=== PATIENT | male | born 1935 ===

== ENCOUNTER 2019-03-31 13:12 | Inpatient (IN) | payer MEDICARE ==
[2019-03-31 16:29] LABS: Hematocrit 23 % (42-52); Hemoglobin 7.7 g/dL (14.0-18.0); Mean Corpuscular HGB Conc 34 g/dL (31-36); Mean Corpuscular Hemoglobin 31 pg (27-31); Mean Corpuscular Volume 92 fL (80-94); Mean Platelet Volume 7.7 fL (7.4-10.4); Platelet Count 212 10^3/uL (150-450); Red Cell Distribution Width 16 % (10-15); White Blood Count 16.9 10^3/uL (3.5-10.8)
[2019-03-31] MEDS ORDERED: Pantoprazole IV* 40 MG IV ONE (16:41)
[2019-03-31 16:43] LABS: Albumin 2.6 g/dL (3.2-5.2); Albumin/Globulin Ratio 1.1 (1-3); BUN/Creatinine Ratio 59.3 (8-20); Calcium 8.4 mg/dL (8.6-10.3); EGFR African American 159.5 (>60); EGFR Non-African American 131.8 (>60); Globulin 2.4 g/dL (2-4); INR 1.15 (0.82-1.09); Potassium 3.6 mmol/L (3.5-5.0); Total Bilirubin 0.5 mg/dL (0.2-1.0)
[2019-03-31] MEDS ORDERED: PROCHLORPERAZINE INJ 5 MG/ML 2 ML VIAL IV PRN (16:44)
[2019-03-31] MEDS ORDERED: Acetaminophen SUPP* 650 MG SUPP PR PRN (16:45)
[2019-03-31] MEDS: NS 0.9% 1000 ML** 1,000 ML IV SCH (16:53)
[2019-03-31 17:06] LABS: ABS Basophils 0.1 10^3/ul (0-0.2); ABS Eosinophils 0.1 10^3/ul (0-0.6); ABS Monocytes 1.1 10^3/ul (0-0.8); ABS Neutrophils 14.6 10^3/ul (1.5-7.7); Eosinophil % 0.4 %; Lymphocyte % 5.8 %; Nucleated Red Blood Cells % 0.1
[2019-03-31 17:08] LABS: Polychromasia 1+
[2019-03-31] MEDS: Pantoprazole* 80 mg IN NS 80 MG/250 ML BAG IV SCH (18:05)
[2019-03-31 20:15] LABS: Hematocrit 23 % (42-52); Hemoglobin 7.5 g/dL (14.0-18.0)
--- NOTE | 2019-03-31 20:20 | HP ---
CC: LINCOLN Garnica; Dr. Ragsdale * HISTORY AND PHYSICAL: DATE OF ADMISSION: 03/31/19 TIME OF EVALUATION: 4:15 p.m. PRIMARY CARE PROVIDER: LINCOLN Garnica CONSULTING PROCUREMENT PROFESSIONAL: Dr. Ragsdale. CHIEF COMPLAINT: "My blood was low." HISTORY OF PRESENT ILLNESS: Mr. Gautam is an 83-year-old male with a past medical history of COPD, C. diff colitis, pneumonia, spinal stenosis, chronic back pain, who presented to [facility] on 03/28/19 with complaints of shortness of breath. He was found to have an H and H of 4.2/13.9 with a BUN of 121, creatinine of 1.3 and he was found to be guaiac positive. It was reported that he was taking large amounts of ibuprofen recently for his back pain. He was admitted to [facility] under the impression of GI bleed with anemia and he received PRBCs and PPI. He was also diagnosed with acute exacerbation of COPD and he was started on doxycycline. On admission, the patient was described as lethargic, pale. His hemoglobin improved after transfusion, but as it started to trend down again today, we were contacted and the patient was accepted in transfer. He denies any episodes of GI bleed in the past. He states that he has had back pain for many years and he would take 1 ibuprofen every now and then, but for the past couple of months, he has been taking it daily 2 to 4 pills as needed for pain. He was not aware that he had black stools. In fact, he states that he had no bowel movements at home for the past 3 days, but after he was admitted to the hospital, he started to go again and that is when he was told that his stool was black. He does complain of mild epigastric and right flank pain. He denies nausea, vomiting, chest pain, or palpitations. He states that he has chronic shortness of breath and he is on oxygen at home and he does not remember much of what happened when he was taken to [facility]. PAST MEDICAL HISTORY: 1. COPD. 2. History of C. diff colitis. 3. History of pneumonia. 4. Spinal stenosis. 5. History of lobectomy. MEDICATIONS: Medication list at [facility]: 1. D5. 2. Potassium chloride. 3. Furosemide. 4. Guaifenesin. 5. Paroxetine. 6. Pantoprazole. 7. Sodium chloride. 8. Doxycycline. 9. Albuterol/ipratropium. 10. Bisacodyl. 11. Magnesium hydroxide. 12. Sodium phosphate enema. Home medications: 1. Guaifenesin 600 mg p.o. b.i.d. 2. Cyanocobalamin 500 mcg p.o. daily. 3. Cholecalciferol, unknown dose. 4. Terazosin 10 mg p.o. daily. 5. Hydrochlorothiazide 25 mg p.o. daily. 6. Diltiazem 240 mg p.o. daily. 7. Prednisone 10 mg p.o. daily. 8. Melatonin 5 mg p.o. at bedtime. 9. Senna 8.6 mg p.o. b.i.d. 10. Paroxetine 20 mg p.o. daily. 11. Ipratropium/albuterol nebulized q.4 hours p.r.n. shortness of breath. ALLERGIES: The patient is allergic to PSEUDOEPHEDRINE. FAMILY HISTORY: Reviewed and noncontributory. SOCIAL HISTORY: No history of alcohol or drug use. The patient was a smoker. He has quit more than a year ago. He is described as having progressive decline of his condition to the point that his [id number] is the one that has to take care of him and as per records from [place], she describes being overwhelmed with his care. REVIEW OF SYSTEMS: A 14-point review of systems was performed and all the pertinent negative and positive findings are in the HPI. PHYSICAL EXAMINATION GENERAL: The patient is a pleasant elderly gentleman, lying in bed, in no acute distress. VITAL SIGNS: Temperature 97.4, heart rate is 96, respiratory rate is 24, oxygen saturation is 100% on 2 L nasal cannula, blood pressure 120/60. HEENT: Pupils are equal, pale, moist mucous membranes. CVS: Normal S1, S2. Regular rate and rhythm. CHEST: Breath sounds bilaterally diminished with no added sounds. ABDOMEN: Soft with mild epigastric tenderness. No guarding. No rebound. Bowel sounds are present. EXTREMITIES: No edema. NEUROLOGIC: He is alert and oriented x3. Able to move all 4 extremities. LABORATORY AND IMAGING DATA: The patient had laboratory tests done at [facility] including CBC that showed WBC of 16.9, hemoglobin of 7.7, hematocrit of 23, platelets of 212. INR was 1.1. Chemistry showed a sodium of 142, potassium 3.6 , chloride 101, bicarb of 39, BUN of 35, creatinine of 0.59, glucose of 101, calcium 8.4. LFTs were normal. Total protein was 5, albumin was 2.6. Chest x-ray from [facility] was described as no acute disease. ASSESSMENT AND PLAN: Mr. Gautam is an 83-year-old male with a past medical history of chronic obstructive pulmonary disease, Clostridium difficile colitis , hypertension, who presented to [facility] with complaints of shortness of breath, found to have severe anemia secondary to upper GI bleed, requiring multiple PRBC transfusions. We were contacted as the patient was having drop in his H and H again and the patient was transferred to our facility for GI evaluation and endoscopy. 1. Upper gastrointestinal bleed. Suspect peptic ulcer disease in the setting of NSAID and steroid use as outpatient. The patient will be admitted as an inpatient to the medical floor. He will have 2 IVs at all times. He will be started on a Protonix drip. GI consultation was requested with Dr. Ragsdale and the patient will be kept on an ice chips only diet in preparation for endoscopy tomorrow. 2. Acute blood loss anemia. The patient's hemoglobin on arrival to [facility] is 7.7. We will monitor his H and H every 8 hours and transfuse if he goes below 7 again. 3. Hypertension. The patient's antihypertensives will be held for now in the setting of GI bleed. We will continue to monitor his vital signs. 4. Chronic obstructive pulmonary disease with possible exacerbation. It is unclear to me if his shortness of breath on arrival to [facility] was related to the chronic obstructive pulmonary disease exacerbation or just to his severe anemia. He is feeling better at this time and he has no wheezing on physical examination. His leukocytosis may be secondary to his blood loss and does not necessarily represent the type of infection. We will continue doxycycline IV and bronchodilators. 5. DVT prophylaxis. The patient has a score of 4 on a DVT Prophylaxis Assessment Guide and pharmacological prophylaxis contraindicated in the setting of a GI bleed. He will have SCDs. 6. Code status is discussed with the patient and he wishes to be a full code. TIME SPENT: Approximately 60 minutes was spent with the patient's interview, medical records review, physical examination to complete the admission, more than half of this time was spent [id number] with the patient and coordination of care. [id number]/[facility] #: [id number] JOHN
[2019-03-31] MEDS: Albuterol/Ipratropium NEB.SOL* Albuterol 2.5 MG/Ipratropium 0.5 MG 3 ML INH PRN (21:01)
--- NOTE | 2019-03-31 22:17 | CONS ---
GASTROENTEROLOGY CONSULT: DATE: 03/31/19 REASON FOR CONSULTATION: Melena with presenting hemoglobin to Bill 2 days ago 4.1. HISTORY: This 83-year-old man with severe COPD, on home O2, status post right lobectomy for lung cancer in 2007, has been declining over the last few years and especially last few months. He has been taking lots of ibuprofen for back pain. His [id number], Paula Mccracken, provided much of the history. She is an ex-cardiac nurse from [facility]. Apparently about a week ago, he began complaining of sour stomach and stopped eating. There was no vomiting. His stools turned dark a few days after that and had been consistently dark. Other than complaining of sour stomach, he had no other acute complaint. There was no vomiting. He has been taking large amounts of ibuprofen for years, currently 800 mg twice a day. He denies aspirin use recently though had been on the low dose years ago. He characteristically has been constipated, not responding to a variety of agents and family members have been disimpacting him fairly often recently. He has never had any acid peptic disorder that they are aware of and has not been taking any acid blockers. He is on a low dose of prednisone daily. He states he has had colonoscopies twice, once at [facility] and once at [facility] with negative findings. He thinks he had an upper endoscopy more than 20 years ago but cannot remember that anything was found or why it was done. PAST MEDICAL HISTORY: 1. COPD - severe. 2. History of lung cancer - 2007. 3. History of deviated septal surgery in 1958, followed by massive hemorrhage and multiple transfusions. 4. Chronic constipation. 5. History of atrial arrhythmias - during a pneumonia admission at [facility]. 6. History of C. diff. MEDICATIONS: As an outpatient - prednisone 10 mg, diltiazem 240 and other meds on the list still pending. SOCIAL HISTORY: He is a retired disabled bridge construction craft laborer. He was living with his daughter for many years but according to his stepson with whom he is currently living, he was not getting the care he needed. He will be picked up off the floor but little else. Three months ago, he moved in with his josueon and his , Paula. He quit smoking some years ago. REVIEW OF SYSTEMS: No history of TIA, CVA, seizure, syncope, PR, hepatitis, jaundice. He has had bilateral inguinal hernia repairs. No history of recent fracture. Prior CBC January 2018 showed hemoglobin 12.7, MCV 92. PHYSICAL EXAM: He is a cachetic, chronically ill-appearing man semi-reclining in bed. He has oxygen. He has a grizzled appearance and a erwin. HEENT exam show no icterus. He has no adenopathy. Breath sounds are grossly diminished. Heart sounds are regular. There is no murmur, but they are distant. The abdomen is protuberant with poor musculature. Bowel sounds are present. His abdomen is soft, but protuberant with respiration. Rectal deferred. Extremities showed no edema. Popliteal pulses intact. Neurologic is nonfocal with symmetric cranial nerves and weak in extremities that are symmetric. LABORATORY DATA: Hemoglobin 7.7, hematocrit 23, platelets 212, white count 16.9. Chemistries showed normal electrolytes. BUN 35; creatinine 0.59; albumin 2.6, down from 3.11 October 2018. IMPRESSION: This 83-year-old man with severe chronic obstructive pulmonary disease and steady decline in functional status over many months, now presents with a subacute upper gastrointestinal bleed. He has been taking a large amounts of ibuprofen on top of prednisone and probably has a sizeable peptic ulcer. So it is possible he just has some more diffuse severe gastritis. There is no sign of chronic liver disease. He has been appropriately started on PPI drip. Whether or not to work up source of the upper GI bleed is significant question. He might be able to tolerate endoscopy with pediatric scope using none or minimal sedation. Seems unlikely he will be able to tolerate a standard diagnostic scope with therapeutic maneuvers contemplated. His best chance is to stabilize with the PPI drip and absence of NSAIDs. At this time, he is a full code though the potential for very burdensome intubation and ICU stay is present. All this was discussed in the presence of his josueon and his , who has been the primary caregiver. The josueon says his quality of life for a year or more has been "nonexistent." [id number]/[facility] #: [id number] [facility]
[2019-04-01] MEDS: DOXYcycline IV* 100 MG in NS 0.9% 250 ML* 250 ML IVPB SCH ×2 (02:46→15:36)
[2019-04-01] MEDS: NS 0.9% 1000 ML** 1,000 ML IV SCH (02:52)
[2019-04-01] MEDS: Pantoprazole* 80 mg IN NS 80 MG/250 ML BAG IV SCH ×3 (03:10→23:38)
[2019-04-01 06:38] LABS: Hematocrit 20 % (42-52); Hemoglobin 6.9 g/dL (14.0-18.0); Mean Corpuscular HGB Conc 34 g/dL (31-36); Mean Corpuscular Hemoglobin 31 pg (27-31); Mean Corpuscular Volume 92 fL (80-94); Mean Platelet Volume 7.6 fL (7.4-10.4); Platelet Count 200 10^3/uL (150-450); Red Cell Distribution Width 16 % (10-15); White Blood Count 17.4 10^3/uL (3.5-10.8)
[2019-04-01 06:40] LABS: Hematocrit 21 % (42-52)
[2019-04-01 06:53] LABS: BUN/Creatinine Ratio 55.4 (8-20); Calcium 7.7 mg/dL (8.6-10.3); EGFR African American 169.4 (>60); Potassium 3.5 mmol/L (3.5-5.0)
[2019-04-01 08:36] LABS: Polychromasia 2+
[2019-04-01 08:37] LABS: ABS Eosinophils 0.2 10^3/ul (0-0.6); ABS Lymphocytes 0.9 10^3/ul (1.0-4.8); ABS Neutrophils 15.3 10^3/ul (1.5-7.7)
[2019-04-01] MEDS ORDERED: Furosemide IV* 10 MG/ML 2 ML VIAL (20 MG) IV SLOW PU ONE (08:46)
--- NOTE | 2019-04-01 08:46 | PN ---
Subjective Date of Service: 04/01/19 Interval History: HOSPITALIST PROGRESS NOTE Patient seen and examined at bedside. Care reviewed and d/w Karen Chadwick RN. He's more dyspneic today. Denies abdominal pain, N/V, happy he'll be able to eat. Family History: Unchanged from Admission Social History: Unchanged from Admission Past Medical History: Unchanged from Admission Objective Active Medications: Acetaminophen (Tylenol Supp*) 650 mg NJ Q6H PRN PRN Reason: Pain/Fever Albuterol/Ipratropium (Duoneb (Albuterol 2.5 Mg/Ipratropium 0.5 Mg)) 1 neb INH Q4H PRN PRN Reason: SOB/WHEEZING Last Admin: 03/31/19 21:01 Dose: 1 neb Pantoprazole Sodium (Protonix Iv Bag*) 80 mg in 250 mls @ 25 mls/hr IV Q10H [facility] Last Admin: 04/01/19 03:10 Dose: 25 mls/hr Sodium Chloride (Ns 0.9% 1000 Ml) 1,000 mls @ 100 mls/hr IV PER RATE [facility] Last Admin: 04/01/19 02:52 Dose: 100 mls/hr Doxycycline Hyclate 100 mg/ (Sodium Chloride) 250 mls @ 250 mls/hr IVPB Q12H [facility] Last Admin: 04/01/19 02:46 Dose: 250 mls/hr Prochlorperazine Edisylate (Compazine Inj*) 5 mg IV Q6H PRN PRN Reason: NAUSEA/VOMITING Vital Signs - 8 hr 04/01/19 04/01/19 04/01/19 04:12 07:30 08:00 Temperature 97.5 F 98.7 F Pulse Rate 90 92 Respiratory 20 20 20 Rate Blood Pressure 118/50 113/50 (mmHg) O2 Sat by Pulse 97 100 Oximetry Oxygen Devices in Use Now: Nasal Cannula - 2 liters Appearance: Elderly frail gentleman sitting up in bed in NAD Eyes: No Scleral Icterus Ears/Nose/Mouth/Throat: Mucous Membranes Moist Neck: Trachea Midline Respiratory: Symmetrical Chest Expansion and Respiratory Effort, - - BS+ bilaterally diminished with bibasilar crackles Cardiovascular: RRR - Normal S1 and S2 Abdominal: NL Sounds; No Tenderness; No Distention Extremities: No Edema Neurological: Alert and Oriented x 3, NL Muscle Strength and Tone Result Diagrams: 04/01/19 05:28 04/01/19 05:28 Assess/Plan/Problems-Billing Assessment: Mr Gautam is an 83yo M with PMH of COPD, lung CA s/p lobectomy, C. diff, spinal stenosis, who presented to [facility] with dyspnea, found to have severe anemia due to presumed upper GI bleed. - Patient Problems (1) Acute blood loss anemia Comment: - Secondary to UGI bleed. - H/H 04/26 - will transfuse 1 PRBC and monitor. - No signs of active bleeding. (2) Upper GI bleed Comment: - Likely PUD in the setting of prednisone and Ibuprofen use. - GI input appreciated - plan for conservative management with Protonix drip. High risk for EGD under traditional sedation due to his COPD. - Continue to monitor. (3) COPD exacerbation Comment: - Continue doxycicline and bronchodilators. - His dyspnea today appears to be associated with fluid overload - will give Furosemide before and after transfusion, and continue to monitor respiratory status. (4) HTN (hypertension) Comment: - Normotensive at this point, with antihypertensives on hold. (5) DVT prophylaxis Comment: - Pharmacological prophylaxis contraindicated in the setting of GI bleed. - SCDs. (6) Full code status Status and Disposition: Inpatient.
[2019-04-01] MEDS: Albuterol/Ipratropium NEB.SOL* Albuterol 2.5 MG/Ipratropium 0.5 MG 3 ML INH PRN ×3 (09:14→23:08)
[2019-04-01 14:08] LABS: Hematocrit 22 % (42-52); Hemoglobin 7.2 g/dL (14.0-18.0)
[2019-04-01] MEDS ORDERED: Furosemide IV* 10 MG/ML VIAL (40 MG) IV SLOW PU ONE (14:58)
[2019-04-01 19:43] LABS: Hematocrit 22 % (42-52); Hemoglobin 7.1 g/dL (14.0-18.0)
[2019-04-02] MEDS: DOXYcycline IV* 100 MG in NS 0.9% 250 ML* 250 ML IVPB SCH ×2 (02:54→14:34)
[2019-04-02] MEDS: Pantoprazole* 80 mg IN NS 80 MG/250 ML BAG IV SCH ×2 (04:06→16:55)
[2019-04-02 06:21] LABS: BUN/Creatinine Ratio 64.9 (8-20); Calcium 7.4 mg/dL (8.6-10.3); EGFR Non-African American 137.2 (>60); Potassium 3.3 mmol/L (3.5-5.0)
[2019-04-02 06:27] LABS: Hematocrit 18 % (42-52); Hemoglobin 6.1 g/dL (14.0-18.0); Mean Corpuscular HGB Conc 34 g/dL (31-36); Mean Corpuscular Hemoglobin 30 pg (27-31); Mean Corpuscular Volume 90 fL (80-94); Mean Platelet Volume 7.6 fL (7.4-10.4); Platelet Count 219 10^3/uL (150-450); Red Blood Count 2.01 10^6 /uL (4.18-5.48); Red Cell Distribution Width 17 % (10-15); White Blood Count 23.4 10^3/uL (3.5-10.8)
[2019-04-02] MEDS: Albuterol/Ipratropium NEB.SOL* Albuterol 2.5 MG/Ipratropium 0.5 MG 3 ML INH PRN ×5 (08:33→23:59)
[2019-04-02] MEDS: KCL 10 MEQ/50 ML IVPREMIX* 10 MEQ/50 ML BAG IV SCH ×4 (08:49→17:30)
--- NOTE | 2019-04-02 09:13 | PN ---
Subjective Date of Service: 04/02/19 Interval History: HOSPITALIST PROGRESS NOTE Patient seen and examined at bedside. Care reviewed and d/w Lon Kim RN. He's not feeling so well today. Breathing was improved last night, but today he' s once again tachypneic. Had black bowel movements overnight, denies abdominal pain. No CP or palpitations. Family History: Unchanged from Admission Social History: Unchanged from Admission Past Medical History: Unchanged from Admission Objective Active Medications: Acetaminophen (Tylenol Supp*) 650 mg NE Q6H PRN PRN Reason: Pain/Fever Albuterol/Ipratropium (Duoneb (Albuterol 2.5 Mg/Ipratropium 0.5 Mg)) 1 neb INH Q4H PRN PRN Reason: SOB/WHEEZING Last Admin: 04/02/19 08:33 Dose: 1 neb Doxycycline Hyclate 100 mg/ (Sodium Chloride) 250 mls @ 250 mls/hr IVPB Q12H ED Last Admin: 04/02/19 02:54 Dose: 250 mls/hr Pantoprazole Sodium (Protonix Iv Bag*) 80 mg in 250 mls @ 25 mls/hr IV Q10H ED Last Admin: 04/02/19 04:06 Dose: 25 mls/hr Potassium Chloride (Potassium Chloride 10 Meq/50 Ml Ivpremix*) 10 meq in 50 mls @ 50 mls/hr IV Q1H ED Stop: 04/02/19 11:59 Prochlorperazine Edisylate (Compazine Inj*) 5 mg IV Q6H PRN PRN Reason: NAUSEA/VOMITING Vital Signs - 8 hr 04/02/19 04/02/19 03:30 08:36 Temperature 98.5 F Pulse Rate 102 99 Respiratory 18 36 Rate Blood Pressure 110/50 (mmHg) O2 Sat by Pulse 100 100 Oximetry Oxygen Devices in Use Now: Nasal Cannula Appearance: Elderly frail gentleman lying in bed, mild tachypnea, but not in distress Ears/Nose/Mouth/Throat: Mucous Membranes Moist - Pale and moist Respiratory: Symmetrical Chest Expansion and Respiratory Effort, - - BS+ bilaterally with scattered wheezing and bibasilar crackles Cardiovascular: RRR - Normal S1 and S2 Abdominal: NL Sounds; No Tenderness; No Distention Neurological: Alert and Oriented x 3, NL Muscle Strength and Tone Result Diagrams: 04/02/19 05:28 04/02/19 05:28 Microbiology and Other Data: Microbiology 03/31/19 16:07 Stool Occult Blood (BRUNO) - Final Stool Assess/Plan/Problems-Billing Assessment: Mr Gautam is an 83yo M with PMH of COPD, lung CA s/p lobectomy, C. diff, spinal stenosis, who presented to [facility] with dyspnea, found to have severe anemia due to presumed upper GI bleed. - Patient Problems (1) Acute blood loss anemia Comment: - Secondary to UGI bleed. - Hb down to 6.1 today and he had more melena overnight. - On the other hand, he's showing signs of fluid overload - will transfuse 1 PRBC and diurese after as tolerated. (2) Upper GI bleed Comment: - Likely PUD in the setting of prednisone and Ibuprofen use. - GI follow up requested - concern he would not be a candidate for EGD due to his poor respiratory status - will await their decision. - Continue Protonix drip. (3) COPD exacerbation Comment: - Continue doxycicline and bronchodilators, but his dyspnea appears to be associated with fluid overload - will continue diuresis with Furosemide as tolerated. - Check echocardiogram. (4) HTN (hypertension) Comment: - Normotensive at this point, with antihypertensives on hold. (5) DVT prophylaxis Comment: - Pharmacological prophylaxis contraindicated in the setting of GI bleed. - SCDs. (6) DNR (do not resuscitate) Comment: - Lengthy conversation with patient and NADINE Tang) at bedside. After reviewing his condition and talking bout his wishes, patient elects to be DNR. We talked about DNI, but patient is not ready to make that decision yet. He wants to talk to GI about EGD before deciding. Status and Disposition: Inpatient. Called NADINE (Paula [phone]) and updated her about his condition and she came to the hospital to assist patient with his decision making.
[2019-04-02 09:21] LABS: ABS Basophils 0.1 10^3/ul (0-0.2); ABS Eosinophils 0.2 10^3/ul (0-0.6); ABS Lymphocytes 1.1 10^3/ul (1.0-4.8); ABS Monocytes 1.2 10^3/ul (0-0.8); ABS Neutrophils 20.8 10^3/ul (1.5-7.7); Eosinophil % 0.6 %; Lymphocyte % 4.9 %
[2019-04-02 09:23] LABS: Polychromasia 1+
[2019-04-02] MEDS ORDERED: Furosemide IV* 10 MG/ML VIAL (40 MG) IV SLOW PU ONE (12:40)
--- NOTE | 2019-04-02 13:20 | ECHO ---
*[facility]* [place] [address] Fax #: [phone] Transthoracic Echocardiogram Patient: Zeb Gautam : 1935 Study Date: 04/02/2019 Age: 83 Gender: M HR: 94 bpm Height: 71 in /180.3 cm Weight: 150.7 lb /68.5 kg BMI/BSA: 21.1 kg/m^2 1.87 m^2 HR: 94 bpm *[employer] Supervisor: Anita Grayson [facility] *Referring Physician: Annel MosleyReading Physician: Jorje Smith MD Indications: Congestive Heart Failure. History: Chronic obstructive pulmonary disease. The patient has a history of lung malignancy. Risk factors: Former tobacco use. Hypertension. Conclusions Summary: 1. Procedure narrative: Transthoracic echocardiography was performed. Image quality was suboptimal. The study was technically limited due to COPD. Patient was very short of breath and sitting up. 2. Left ventricle: Systolic function is at the lower limits of normal. The estimated ejection fraction is 45-50% although the study is very limited . Left ventricle ejection fraction probably lower limit of normal. TDS and the endocardium is not well visualized. 3. No significant valvular disease noticed. 4. No previous echocardiogram available. Study data: Transthoracic echocardiogram. Procedure: Transthoracic echocardiography was performed. Image quality was suboptimal. The study was technically limited due to COPD. Patient was very short of breath and sitting up. Complete 2D, spectral Doppler, and color flow Doppler. Location: Bedside. Patient status: Inpatient. Patient room number: 410. Rhythm: Normal sinus rhythm. Findings Left ventricle: The cavity size is normal. Wall thickness is normal. Systolic function is at the lower limits of normal. The estimated ejection fraction is 45-50%. There are no obvious regional wall motion abnormalities. There is no consistent Doppler evidence of clinically significant diastolic dysfunction. Right ventricle: The cavity size is normal. Systolic function is normal. Left atrium: Not well visualized. The atrium is normal in size. Right atrium: The atrium is normal in size. Mitral valve: The leaflets are mildly thickened. There is no evidence of stenosis. There is no significant regurgitation. Aortic valve: The annulus is mildly calcified. The leaflets are mildly thickened. There is no evidence of stenosis. There is no significant regurgitation. Tricuspid valve: The leaflets are normal thickness. There is no evidence of stenosis. There is no significant regurgitation. Pulmonic valve: Not well visualized. There is no significant regurgitation. Aorta: Aortic root: The aortic root is appears normal. Ascending aorta: The ascending aorta is poorly visualized. Aortic arch: The aortic arch is appears normal. Pericardium: There is no significant pericardial effusion. Pulmonary arteries: Not well visualized. Systolic pressure can not be accurately estimated. Systemic veins: Inferior vena cava: The vessel is normal in size. The respirophasic diameter changes are in the normal range (>= 50%). Measurements Left ventricle Value Ref Aortic valve Value Ref HEVER, LAX 4.5 cm 4.2 - 5.8 Blas diam, ED 2.3 cm ---- ESD, LAX 3.9 cm 2.5 - 4.0 Peak v, S 1.03 m/sec ---- FS, LAX (L) 12 % 25 - 43 VTI, S 16.9 cm ---- PW, ED, LAX 1.0 cm 0.6 - 1.0 Mean grad, S 2.0 mm Hg ---- EF (L) 26 % 52 - 72 Peak grad, S 4.0 mm Hg ---- E', lat blas, TDI (L) 5.7 cm/sec >=10.0 E/e', lat blas, 12 Mitral valve Value Ref TDI Peak E 0.71 m/sec ---- E', med blas, TDI 10.0 cm/sec >=7.0 Peak A 1.1 m/sec ---- E/e', med blas, 7 Decel time 124 ms ---- TDI PHT 87 ms ---- E', avg, TDI 7.9 cm/sec Mean grad, D 2.0 mm Hg ---- E/e', avg, TDI 9 <=14 Peak grad, D 5.0 mm Hg ---- Peak E/A ratio 0.6 ---- LVOT Value Ref MVA, PHT 2.5 cm^2 ---- Peak geoffrey, S 0.74 m/sec Mean grad, S 1 mm Hg Pulmonic valve Value Ref Peak v, S 0.86 m/sec ---- Ventricular septum Value Ref Peak grad, S 3.0 mm Hg ---- IVS, ED 1.0 cm 0.6 - 1.0 Aortic root Value Ref Right ventricle Value Ref Root diam 3.4 cm <4.0 HEVER, LAX 3.3 cm HEVER minor ax, A4C 2.9 cm 1.9 - 3.5 Aortic arch Value Ref mid Arch diam 2.7 cm ---- Left atrium Value Ref Inferior vena cava Value Ref AP dim, ES 3.30 cm 3.00 - Diam 1.7 cm ---- 4.00 Right atrium Value Ref SI dim, ES 4.7 cm 3.4 - 5.3 ML dim, ES, A4C 3.7 cm 2.6 - 4.4 Estimated RAP 8 mm Hg Legend: (L) and (H) noman values outside specified reference range. Prepared and electronically signed by Jorje Ellis MD 04/02/2019 13:20
[2019-04-02 13:29] LABS: Hematocrit 22 % (42-52); Hemoglobin 7.3 g/dL (14.0-18.0)
[2019-04-02] MEDS ORDERED: Furosemide IV* 10 MG/ML 2 ML VIAL (20 MG) IV SLOW PU ONE (17:02)
[2019-04-02] MEDS ORDERED: Phytonadione Oral Solution* 5 MG/25 ML UDC PO ONE (17:10)
--- NOTE | 2019-04-02 17:11 | PN ---
Progress Note - Progress Note Date of Service: 04/02/19 Note: GI Follow up Patient seen and examined. Still with melena. No pain. No lightheadedness or dizziness. Feels more short of breath today VS: P-94, R- 24, 102/45, 100% 3L Gen: alert, oriented x3 Heent: at/nc, perrla, eomi CVS: RRR s1s2 REsp: diffuse wheezing b/l with poor effort Abd: soft, nt, nd, bs+ SKin: scattered ecchymoses Posterior exam: melena Labs: Hgb 6.1->7.3 A/P 83 year old male with UGI bleed, severe COPD 1.) Melena/Acute blood loss anemia: still evidence of melena. Hgb did drop. Pulmonary status is still very poor. Very high risk for endoscopy and complications. Discussed this with patient and Daughter in law Charlee ). Discussed risks, benefits, alternatives to EGD, will hold at this time and continue conservative care with hope it will stop. Given INR up a bit will give 10mg PO Vit K x 1. 2.) Severe COPD: per primary team Eugene Rivas DO 04/02/19 1700
[2019-04-02] MEDS: Morphine INJ* 2 MG/ML 1 ML SYRINGE (TWO MG - NEW SYRINGE VERSION) IV PRN ×2 (17:28→22:06)
[2019-04-02] MEDS: KCL premix 10MEQ/50 ML x 2 BAGS IV SCH ×2 (17:29→21:08)
[2019-04-02 21:02] LABS: Hematocrit 21 % (42-52); Hemoglobin 7.2 g/dL (14.0-18.0)
[2019-04-03] MEDS: Morphine INJ* 2 MG/ML 1 ML SYRINGE (TWO MG - NEW SYRINGE VERSION) IV PRN ×4 (00:11→21:20)
[2019-04-03] MEDS: DOXYcycline IV* 100 MG in NS 0.9% 250 ML* 250 ML IVPB SCH ×2 (01:50→13:53)
[2019-04-03] MEDS: Pantoprazole* 80 mg IN NS 80 MG/250 ML BAG IV SCH ×2 (02:36→13:08)
[2019-04-03] MEDS: Albuterol 2.5 MG/3 ML NEB.SOL* (0.083%) INH PRN ×2 (02:38→07:50)
[2019-04-03] MEDS ORDERED: Furosemide IV* 10 MG/ML VIAL (40 MG) IV SLOW PU ONE (02:43)
[2019-04-03 06:57] LABS: Hematocrit 21 % (42-52); Hemoglobin 7.1 g/dL (14.0-18.0); Mean Corpuscular HGB Conc 34 g/dL (31-36); Mean Corpuscular Hemoglobin 30 pg (27-31); Mean Corpuscular Volume 90 fL (80-94); Mean Platelet Volume 7.3 fL (7.4-10.4); Platelet Count 226 10^3/uL (150-450); Red Blood Count 2.36 10^6 /uL (4.18-5.48); Red Cell Distribution Width 16 % (10-15); White Blood Count 19.6 10^3/uL (3.5-10.8)
[2019-04-03 07:14] LABS: BUN/Creatinine Ratio 42.4 (8-20); Calcium 7.2 mg/dL (8.6-10.3); EGFR African American 140.2 (>60); EGFR Non-African American 115.8 (>60); Magnesium 1.2 mg/dL (1.9-2.7); Potassium 2.8 mmol/L (3.5-5.0)
[2019-04-03 07:45] LABS: ABS Eosinophils 0.2 10^3/ul (0-0.6); ABS Lymphocytes 0.9 10^3/ul (1.0-4.8); ABS Neutrophils 17.5 10^3/ul (1.5-7.7); Eosinophil % 1.2 %; Lymphocyte % 4.4 %
[2019-04-03] MEDS: KCL 10 MEQ/50 ML IVPREMIX* 10 MEQ/50 ML BAG IV SCH ×4 (07:54→15:10)
[2019-04-03] MEDS: Albuterol/Ipratropium NEB.SOL* Albuterol 2.5 MG/Ipratropium 0.5 MG 3 ML INH SCH ×3 (13:01→19:32)
[2019-04-03] MEDS ORDERED: Magnesium Sulfate 2 GM IV* 2 GM/50 ML BAG IVPB ONE (13:15)
[2019-04-03 13:27] LABS: Hematocrit 19 % (42-52); Hemoglobin 6.5 g/dL (14.0-18.0)
[2019-04-03 13:44] LABS: BUN/Creatinine Ratio 44.8 (8-20); EGFR African American 162.7 (>60); EGFR Non-African American 134.5 (>60); Magnesium 1.3 mg/dL (1.9-2.7); Potassium 3.2 mmol/L (3.5-5.0)
[2019-04-03 14:01] LABS: INR 1.2 (0.82-1.09)
--- NOTE | 2019-04-03 15:07 | PN ---
Subjective Date of Service: 04/03/19 Interval History: HOSPITALIST PROGRESS NOTE Patient seen and examined at bedside. Care reviewed and d/w Miguel Angel Mishra RN. His major complaint is hunger. His breathing is easier today, no further episodes of melena so far. Denies abdominal pain, nausea or vomiting. Family History: Unchanged from Admission Social History: Unchanged from Admission Past Medical History: Unchanged from Admission Objective Active Medications: Acetaminophen (Tylenol Tab*) 650 mg PO Q6H PRN PRN Reason: pain/fever Albuterol (Ventolin 2.5 Mg/3 Ml Neb.Tarah*) 2.5 mg INH Q2H PRN PRN Reason: SOB/WHEEZING Last Admin: 04/03/19 07:50 Dose: 2.5 mg Albuterol/Ipratropium (Duoneb (Albuterol 2.5 Mg/Ipratropium 0.5 Mg)) 1 neb INH [id number] AWAKE [facility] Last Admin: 04/03/19 13:01 Dose: 1 neb Doxycycline Hyclate 100 mg/ (Sodium Chloride) 250 mls @ 250 mls/hr IVPB Q12H [facility] Stop: 04/04/19 18:00 Last Admin: 04/03/19 13:53 Dose: 250 mls/hr Pantoprazole Sodium (Protonix Iv Bag*) 80 mg in 250 mls @ 25 mls/hr IV Q10H ED Last Admin: 04/03/19 13:08 Dose: 25 mls/hr Morphine Sulfate (Morphine Inj (Syringe))*) 1 mg IV Q2H PRN PRN Reason: SEVERE PAIN Last Admin: 04/03/19 13:47 Dose: 1 mg Prochlorperazine Edisylate (Compazine Inj*) 5 mg IV Q6H PRN PRN Reason: NAUSEA/VOMITING Vital Signs - 8 hr 04/03/19 04/03/19 04/03/19 07:51 08:00 13:05 Temperature 97.7 F Pulse Rate 101 102 48 Respiratory 22 28 16 Rate Blood Pressure 103/56 (mmHg) O2 Sat by Pulse 100 100 91 Oximetry 04/03/19 13:47 Temperature Pulse Rate Respiratory 24 Rate Blood Pressure (mmHg) O2 Sat by Pulse Oximetry Oxygen Devices in Use Now: Nasal Cannula Appearance: Elderly gentleman lying in bed in NAD Eyes: No Scleral Icterus Ears/Nose/Mouth/Throat: Mucous Membranes Moist Neck: Trachea Midline Respiratory: Symmetrical Chest Expansion and Respiratory Effort, - - BS+ bilaterally diminished with bibasilar crackles Cardiovascular: RRR - Normal S1 and S2 Abdominal: NL Sounds; No Tenderness; No Distention Neurological: Alert and Oriented x 3, NL Muscle Strength and Tone Result Diagrams: 04/03/19 13:02 04/03/19 13:02 Assess/Plan/Problems-Billing Assessment: Mr Gautam is an 83yo M with PMH of COPD, lung CA s/p lobectomy, C. diff, spinal stenosis, who presented to [facility] with dyspnea, found to have severe anemia due to presumed upper GI bleed. - Patient Problems (1) Acute blood loss anemia Comment: - Secondary to UGI bleed. - Hb had been stable, but now down to 6.5 again. - Will transfuse 1 PRBC and diurese after as tolerated. (2) Upper GI bleed Comment: - Likely PUD in the setting of prednisone and Ibuprofen use. - GI follow up requested - concern he would not be a candidate for EGD due to his poor respiratory status, but on the other hand, his H/H is dropping again. Awaiting Dr Osvaldo Gage's decision. - Continue Protonix drip. (3) COPD exacerbation Comment: - Continue bronchodilators. - Will complete doxycycline today. (4) Acute diastolic CHF (congestive heart failure) Comment: - Developed fluid overload with IVF and multiple transfusions. - Echo shows EF 45-50%. - Respiratory status is better today, but will give Furosemide after PRBC. (5) HTN (hypertension) Comment: - Normotensive at this point, with antihypertensives on hold. (6) DVT prophylaxis Comment: - Pharmacological prophylaxis contraindicated in the setting of GI bleed. - SCDs. (7) DNR (do not resuscitate) Comment: - Lengthy conversation with patient and NADINE Tang) at bedside on . After reviewing his condition and talking about his wishes, patient elects to be DNR. We talked about DNI, but patient is not ready to make that decision yet. He wants to talk to GI about EGD before deciding. Status and Disposition: Inpatient. DIL updated at bedside. NADINE Mitchell phone # [phone]
[2019-04-03] MEDS ORDERED: KCL 10 MEQ/50 ML IVPREMIX* 10 MEQ/50 ML BAG ONE (15:08)
[2019-04-03] MEDS ORDERED: Magnesium Sulfate 1 GM IV* 1 GM/100 ML BAG IV ONE (15:10)
--- NOTE | 2019-04-03 18:43 | PN ---
Progress Note - Progress Note Date of Service: 04/03/19 Note: BRIEF GI NOTE H/H had remained stable for past 24 hours. Repeat CBC this afternoon with Hgb down from 7.1 to 6.5. No melena charted today. Patient receiving unit of blood. Feels better today. PICC line placed this afternoon. Eating dinner. - NPO after MN. Will recheck blood counts in AM. If CBC continuing to drop, then I will consider EGD with minimal sedation to evaluate UGI tract. If CBC stabilizes, then the plan will be to continue PPI BID and monitor. - Continue IV PPI - Discussed case with patient's daughter, Paula. Will keep her up to date with GI plans.
[2019-04-03] MEDS ORDERED: Furosemide IV* 10 MG/ML 2 ML VIAL (20 MG) IV SLOW PU ONE (18:45)
[2019-04-03] MEDS: Acetaminophen TAB* 325 MG PO PRN (19:00)
[2019-04-04] MEDS: Albuterol/Ipratropium NEB.SOL* Albuterol 2.5 MG/Ipratropium 0.5 MG 3 ML INH SCH ×5 (00:23→19:41)
[2019-04-04] MEDS: Pantoprazole* 80 mg IN NS 80 MG/250 ML BAG IV SCH ×3 (01:07→20:47)
[2019-04-04] MEDS: DOXYcycline IV* 100 MG in NS 0.9% 250 ML* 250 ML IVPB SCH ×2 (02:15→14:34)
[2019-04-04 05:38] LABS: Hematocrit 22 % (42-52); Hemoglobin 7.5 g/dL (14.0-18.0); Mean Corpuscular HGB Conc 34 g/dL (31-36); Mean Corpuscular Hemoglobin 30 pg (27-31); Mean Corpuscular Volume 89 fL (80-94); Mean Platelet Volume 7.3 fL (7.4-10.4); Platelet Count 198 10^3/uL (150-450); Red Cell Distribution Width 17 % (10-15); White Blood Count 16.1 10^3/uL (3.5-10.8)
[2019-04-04 05:44] LABS: INR 1.17 (0.82-1.09)
[2019-04-04 05:59] LABS: BUN/Creatinine Ratio 45.5 (8-20); Blood Urea Nitrogen 20 mg/dL (6-24); CO2 Carbon Dioxide 37 mmol/L (22-32); Calcium 6.8 mg/dL (8.6-10.3); Chloride 103 mmol/L (101-111); EGFR African American 223.8 (>60); Glucose 133 mg/dL (70-100); Magnesium 1.8 mg/dL (1.9-2.7); Potassium 2.9 mmol/L (3.5-5.0); Sodium 140 mmol/L (135-145)
[2019-04-04 06:37] LABS: ABS Eosinophils 0.2 10^3/ul (0-0.6); ABS Lymphocytes 0.8 10^3/ul (1.0-4.8); ABS Monocytes 0.7 10^3/ul (0-0.8); ABS Neutrophils 14.4 10^3/ul (1.5-7.7); Eosinophil % 1.3 %; Lymphocyte % 4.7 %
[2019-04-04] MEDS ORDERED: Magnesium Sulfate 2 GM IV* 2 GM/50 ML BAG IVPB ONE (07:40)
[2019-04-04] MEDS: KCL 10 MEQ/50 ML IVPREMIX* 10 MEQ/50 ML BAG IV SCH ×3 (08:57→11:56)
--- NOTE | 2019-04-04 12:10 | PN ---
Subjective Date of Service: 04/04/19 Interval History: HOSPITALIST PROGRESS NOTE Patient seen and examined at bedside. Care reviewed and d/w Adina Thomas RN. He states his breathing is good today. Denies abdominal pain, nausea, feels hungry. No BM so far today. Family History: Unchanged from Admission Social History: Unchanged from Admission Past Medical History: Unchanged from Admission Objective Active Medications: Acetaminophen (Tylenol Tab*) 650 mg PO Q6H PRN PRN Reason: pain/fever Last Admin: 04/03/19 19:00 Dose: 650 mg Albuterol (Ventolin 2.5 Mg/3 Ml Neb.Tarah*) 2.5 mg INH Q2H PRN PRN Reason: SOB/WHEEZING Last Admin: 04/03/19 07:50 Dose: 2.5 mg Albuterol/Ipratropium (Duoneb (Albuterol 2.5 Mg/Ipratropium 0.5 Mg)) 1 neb INH [id number] AWAKE ED Doxycycline Hyclate 100 mg/ (Sodium Chloride) 250 mls @ 250 mls/hr IVPB Q12H ED Stop: 04/04/19 18:00 Last Admin: 04/04/19 02:15 Dose: 250 mls/hr Pantoprazole Sodium (Protonix Iv Bag*) 80 mg in 250 mls @ 25 mls/hr IV Q10H ED Last Admin: 04/04/19 08:56 Dose: 25 mls/hr Morphine Sulfate (Morphine Inj (Syringe))*) 1 mg IV Q2H PRN PRN Reason: SEVERE PAIN Last Admin: 04/03/19 21:20 Dose: 1 mg Prochlorperazine Edisylate (Compazine Inj*) 5 mg IV Q6H PRN PRN Reason: NAUSEA/VOMITING Vital Signs - 8 hr 04/04/19 04/04/19 04/04/19 05:15 05:25 08:00 Temperature 98.1 F 97.2 F Pulse Rate 73 96 Respiratory 18 23 Rate Blood Pressure 118/54 106/53 (mmHg) O2 Sat by Pulse 89 96 99 Oximetry Oxygen Devices in Use Now: Nasal Cannula Appearance: Elderly gentleman lying in bed in NAD. Eyes: No Scleral Icterus Ears/Nose/Mouth/Throat: Mucous Membranes Moist Neck: Trachea Midline Respiratory: Symmetrical Chest Expansion and Respiratory Effort, - - BS+ bilaterally coarse, scattered wheezing Cardiovascular: RRR - Normal S1 and S2 Abdominal: NL Sounds; No Tenderness; No Distention Neurological: Alert and Oriented x 3, NL Muscle Strength and Tone Result Diagrams: 04/04/19 05:30 04/04/19 05:30 Assess/Plan/Problems-Billing Assessment: Mr Gautam is an 83yo M with PMH of COPD, lung CA s/p lobectomy, C. diff, spinal stenosis, who presented to [facility] with dyspnea, found to have severe anemia due to presumed upper GI bleed. - Patient Problems (1) Acute blood loss anemia Comment: - Secondary to UGI bleed. - Has received 3 PRBC so far at [facility] [place] - will continue to monitor H/H. - At this point, will check CBC daily, but if he has further episodes of melena , will need to do it more frequently. (2) Upper GI bleed Comment: - Likely PUD in the setting of prednisone and Ibuprofen use. - GI follow up requested - concern he would not be a candidate for EGD due to his poor respiratory status. Plan to continue PPI and monitor. (3) COPD exacerbation Comment: - He appears to be close to his baseline - continue bronchodilators. - Completed doxycycline course. - Continue to monitor respiratory status. (4) Acute diastolic CHF (congestive heart failure) Comment: - Developed fluid overload with IVF and multiple transfusions. - Echo shows EF 45-50%. - Respiratory status is better today. (5) DVT prophylaxis Comment: - Pharmacological prophylaxis contraindicated in the setting of GI bleed. - SCDs. (6) DNR (do not resuscitate) Comment: - Lengthy conversation with patient and NADINE (Paula) at bedside on . After reviewing his condition and talking about his wishes, patient elects to be DNR. We talked about DNI, but patient is not ready to make that decision yet. Status and Disposition: Inpatient. DIL updated at bedside. NADINE Mitchell phone # [phone]
--- NOTE | 2019-04-04 13:53 | PN ---
Progress Note - Progress Note Date of Service: 04/04/19 Note: BRIEF GI FOLLOW-UP NOTE IE/S: - Received 1u yesterday evening. - No bowel movement today. BM on Saturday reportedly not melena - Reports feeling hungry. No other complaints expressed during interview O: - VSS (HR 90's) - Chronically ill and frail appearing elderly gentleman. Lying in bed eating ice chips. NAD. Minimally conversant. Abdomen soft and NT/ND. RUE PICC. - Hgb trend over past 48 hours: 6.1 > transfusion > 7.3 > 7.2 > 7.1 > 6.5 > 1 unit > 7.5. A/P: 83 yM w/ severe COPD a/w UGIB. Course complicated by diastolic heart failure exacerbation related to transfusions and IV fluids. H/H had stabilized yesterday, although there was a bit of a drop yesterday afternoon. Repeat CBC improved as would be expected after 1 unit. No melena. - Monitor CBC every 12-24 hours unless acute clinical change in which case more frequent blood count checks would be indicated - Continue IV PPI - Can start soft diet for now. Change to NPO if clinical change - Discussed with patient's daughter, Paula. Patient remains a poor candidate for sedation and endoscopy given his cardiopulmonary co-morbidities. Will defer EGD unless significant ongoing bleeding. Bonnie Bojorquez MD Gastroenterology
[2019-04-04] MEDS: Morphine INJ* 2 MG/ML 1 ML SYRINGE (TWO MG - NEW SYRINGE VERSION) IV PRN (20:57)
[2019-04-05] MEDS: Acetaminophen TAB* 325 MG PO PRN (00:32)
[2019-04-05] MEDS: Albuterol/Ipratropium NEB.SOL* Albuterol 2.5 MG/Ipratropium 0.5 MG 3 ML INH SCH ×4 (00:32→19:29)
[2019-04-05] MEDS: Morphine INJ* 2 MG/ML 1 ML SYRINGE (TWO MG - NEW SYRINGE VERSION) IV PRN ×4 (00:33→19:54)
[2019-04-05] MEDS ORDERED: Furosemide IV* 10 MG/ML 2 ML VIAL (20 MG) IV ONE (01:02)
[2019-04-05] MEDS: Albuterol 2.5 MG/3 ML NEB.SOL* (0.083%) INH PRN (03:16)
[2019-04-05 05:48] LABS: ABS Eosinophils 0.2 10^3/ul (0-0.6); ABS Lymphocytes 0.8 10^3/ul (1.0-4.8); ABS Monocytes 0.9 10^3/ul (0-0.8); ABS Neutrophils 12.6 10^3/ul (1.5-7.7); Eosinophil % 1.5 %; Hematocrit 23 % (42-52); Hemoglobin 7.5 g/dL (14.0-18.0); Lymphocyte % 5.8 %; Mean Corpuscular HGB Conc 33 g/dL (31-36); Mean Corpuscular Hemoglobin 30 pg (27-31); Mean Corpuscular Volume 89 fL (80-94); Mean Platelet Volume 7.2 fL (7.4-10.4); Platelet Count 206 10^3/uL (150-450); Red Blood Count 2.54 10^6 /uL (4.18-5.48); Red Cell Distribution Width 16 % (10-15); White Blood Count 14.5 10^3/uL (3.5-10.8)
[2019-04-05 06:09] LABS: BUN/Creatinine Ratio 36.2 (8-20); Calcium 7.1 mg/dL (8.6-10.3); EGFR African American 207.4 (>60); EGFR Non-African American 171.4 (>60); Potassium 3.4 mmol/L (3.5-5.0)
[2019-04-05] MEDS: Pantoprazole* 80 mg IN NS 80 MG/250 ML BAG IV SCH (08:09)
[2019-04-05] MEDS ORDERED: Potassium Chloride* LIQUID 20 MEQ/15 ML UDC PO ONE (09:03)
[2019-04-05] MEDS ORDERED: Furosemide IV* 10 MG/ML VIAL (40 MG) IV ONE (09:38)
--- NOTE | 2019-04-05 11:30 | PN ---
Subjective Date of Service: 04/05/19 Interval History: Pt is on 02 mas now,but he breathing feels "fine". Last BM "brown" reported 2 days ago. denies abd pain. Does not have appetite Pt is seen with his stepson by the bedside Family History: Unchanged from Admission Social History: Unchanged from Admission Past Medical History: Unchanged from Admission Objective Active Medications: Acetaminophen (Tylenol Tab*) 650 mg PO Q6H PRN PRN Reason: pain/fever Last Admin: 04/05/19 00:32 Dose: 650 mg Albuterol (Ventolin 2.5 Mg/3 Ml Neb.Tarah*) 2.5 mg INH Q2H PRN PRN Reason: SOB/WHEEZING Last Admin: 04/05/19 03:16 Dose: 2.5 mg Albuterol/Ipratropium (Duoneb (Albuterol 2.5 Mg/Ipratropium 0.5 Mg)) 1 neb INH [id number] AWAKE ED Last Admin: 04/05/19 07:42 Dose: 1 neb Pantoprazole Sodium (Protonix Iv Bag*) 80 mg in 250 mls @ 25 mls/hr IV Q10H ED Last Admin: 04/05/19 08:09 Dose: 25 mls/hr Morphine Sulfate (Morphine Inj (Syringe))*) 1 mg IV Q2H PRN PRN Reason: SEVERE PAIN Last Admin: 04/05/19 08:21 Dose: 1 mg Prochlorperazine Edisylate (Compazine Inj*) 5 mg IV Q6H PRN PRN Reason: NAUSEA/VOMITING Vital Signs - 8 hr 04/05/19 04/05/19 04/05/19 03:51 07:44 08:00 Temperature 97.9 F Pulse Rate 98 110 102 Respiratory 22 22 30 Rate Blood Pressure 125/54 155/51 (mmHg) O2 Sat by Pulse 96 84 100 Oximetry 04/05/19 04/05/19 08:21 10:07 Temperature Pulse Rate Respiratory 30 30 Rate Blood Pressure (mmHg) O2 Sat by Pulse Oximetry Oxygen Devices in Use Now: OxyMask Appearance: 83 yo m in nAD, AAOx3 Eyes: No Scleral Icterus, PERRLA Ears/Nose/Mouth/Throat: NL Teeth, Lips, Gums, Mucous Membranes Moist Neck: NL Appearance and Movements; NL JVP, Trachea Midline Respiratory: Symmetrical Chest Expansion and Respiratory Effort, - - distant breath sounds b/l lung with rales at b/l lower lobes Cardiovascular: NL Sounds; No Murmurs; No JVD, RRR Abdominal: NL Sounds; No Tenderness; No Distention Lymphatic: No Cervical Adenopathy Extremities: No Clubbing, Cyanosis, - - trace b/l ankle edema r>L Skin: No Rash or Ulcers, No Nodules or Sclerosis Neurological: Alert and Oriented x 3, NL Muscle Strength and Tone Result Diagrams: 04/05/19 05:33 04/05/19 05:33 Microbiology and Other Data: Microbiology 03/31/19 16:07 Stool Occult Blood (BRUNO) - Final Stool Assess/Plan/Problems-Billing Assessment: Mr Gautam is an 83yo M with PMH of COPD (on 02 at night at home and prn), lung CA s/p lobectomy, C. diff, spinal stenosis, who presented to [facility] with dyspnea, found to have severe anemia due to presumed upper GI bleed. - Patient Problems (1) Upper GI bleed Comment: - Likely PUD in the setting of prednisone and Ibuprofen use. - GI follow up requested - concern he would not be a candidate for EGD due to his poor respiratory status. Plan to continue PPI and monitor. (2) Acute blood loss anemia Comment: - Secondary to UGI bleed. - Has received 3 PRBC so far at [facility] [place] - will continue to monitor H/H. - At this point, will check CBC daily, but if he has further episodes of melena , will need to do it more frequently. (3) Acute diastolic CHF (congestive heart failure) Comment: - Developed fluid overload with IVF and multiple transfusions. - Echo shows EF 45-50%. - Respiratory status is also worsened by underlying COPD (4) COPD exacerbation Comment: - He appears to be in exacerbation - continue bronchodilators. - Completed doxycycline course. - Continue to monitor respiratory status. (5) DVT prophylaxis Comment: - Pharmacological prophylaxis contraindicated in the setting of GI bleed. - SCDs. Status and Disposition: Inpatient. NADINE Paula phone # [phone]
--- NOTE | 2019-04-05 16:33 | PN ---
Progress Note - Progress Note Date of Service: 04/05/19 Note: Pt was noted to be very lethargic this PM with rapid, shallow breathing. On exam responds to voice, but unable to fully communicate, not oriented Resp: increased WOB with b/l lower lobe crackles and diffuse wheezes spoke with DIL blas and update. Pt is going to be transferred to ICU due to likely CO2 retention. Family is on their way. Checking ABG, will start BIPAP
[2019-04-05 18:10] VITALS: BP 89/52
[2019-04-05] MEDS ORDERED: Morphine ORAL CONCENTRATE* 5 MG/0.25 ML ORAL.SYRIN SL PRN (18:48)
[2019-04-05] MEDS ORDERED: Lorazepam PYXIS KEY PRN (18:48)
[2019-04-05] MEDS ORDERED: LORazepam INJ* 2 MG/ML 1 ML VIAL IV PUSH PRN (18:48)
--- NOTE | 2019-04-05 18:50 | PN ---
Progress Note - Progress Note Date of Service: 04/05/19 Note: Pt was seen again ib ICU on BIPAP with NADINE Mitchell by the bedside and son Ramón on speaker phone. DNR/DNI was signed initially and approx 30 min later pt's son requested comfort care to be started. Pt may be transferred out of ICU. Will request palliative care consult
[2019-04-05] MEDS ORDERED: Morphine INJ* 2 MG/ML 1 ML SYRINGE (TWO MG - NEW SYRINGE VERSION) IV ONE (20:31)
[2019-04-05] MEDS ORDERED: Morphine INJ* 2 MG/ML 1 ML SYRINGE (TWO MG - NEW SYRINGE VERSION) IV PRN (20:33)
[2019-04-05] MEDS ORDERED: Pantoprazole TAB * 40 MG TAB PO SCH (21:00)
[2019-04-05] MEDS ORDERED: Morphine PCA ADULT* 5 MG/ML 30 ML PCA SCH (22:00)
--- NOTE | 2019-04-08 19:24 | DS ---
CC: LINCOLN Garnica; Dr. Ragsdale; Dr. Bojorquez; Dr. Rivas; Dr. Patti Martino DISCHARGE/ SUMMARY: DATE OF ADMISSION: 04/04/19 DATE OF : 04/05/19 at 9:30 p.m. PRIMARY CARE PROVIDER: LINCOLN Garnica CAUSE OF : 1. Acute hypercapnic respiratory failure with respiratory acidosis due to COPD exacerbation and henderson tolic CHF. 2. Acute likely upper GI bleed and resultant anemia, status post 3 units of packed red blood cell tr ansfusion during the hospital stay. The patient never was a candidate for endoscopy due to his poor respiratory status. HOSPITALIZATION COURSE: Zeb Gautam was an 83-year-old male with history of COPD, who presented to our hospital as a transfer from [facility] on 03/31/19. He was noted to be significantly ane emelia with hemoglobin of 7.7 at admission. His hemoglobin continued to drop and on 04/02/19, his hemog lobin was 6.1. Throughout his hospital stay, he received 3 units of packed red blood cells. He was a lso evaluated by secondary social studies teacher team including Dr. Rivas, Dr. Ragsdale and Dr. Bojorquez. The patient's respiratory status was very poor due to his COPD, which was an acute exacerbation in addit ion to acute diastolic CHF. He was not a good candidate for an endoscopy during his hospital stay. He was treated conservatively with intravenous proton-pump inhibitor. Despite that, he continued to drop his hemoglobin. On 04/05/19, the patient became lethargic and his ABG indicated hypercapnia. A t this point, he continued to be more and more lethargic and he was transferred to the intensive care unit to be placed on BiPAP. He was basically placed on BiPAP, but at this point, the discussion was carried with the patient's family including the patient's son, Ramón and aRmón's . The family req uested for the patient to be comfort care and for the BiPAP to be removed. The patient shortly after BiPAP was removed at 9:30 p.m. An autopsy was not requested. Please note that this is a short summary of the patient's hospital stay. Please refer to further [facility] records for details. [id number]/CPS #: [id number]
== END 2019-04-05 21:30 | disposition expired | DRG 377 ==
LOC: MED 15:44 → ICU 04-05 16:30
PROVIDERS: ADMIT Internal Medicine; ATTEND Internal Medicine
PROC: 30233N1 Transfusion of Nonautologous Red Blood Cells into Peripheral Vein, Percutaneous Approach (ICD-10-PCS; principal; 2019-04-01)
PROC: 02HV33Z Insertion of Infusion Device into Superior Vena Cava, Percutaneous Approach (ICD-10-PCS; 2019-04-03)
PROC: 5A09357 Assistance with Respiratory Ventilation, Less than 24 Consecutive Hours, Continuous Positive Airway Pressure (ICD-10-PCS; 2019-04-05)
DX: K92.1 Melena (principal); I50.33 Acute on chronic diastolic (congestive) heart failure; D62 Acute posthemorrhagic anemia; J44.1 Chronic obstructive pulmonary disease with (acute) exacerbation; G89.29 Other chronic pain; M54.9 Dorsalgia, unspecified; M48.00 Spinal stenosis, site unspecified; Z66 Do not resuscitate; I11.0 Hypertensive heart disease with heart failure; Z51.5 Encounter for palliative care; K59.09 Other constipation; Z87.01 Personal history of pneumonia (recurrent); Z90.2 Acquired absence of lung [part of]; Z88.8 Allergy status to other drugs, medicaments and biological substances; Z87.891 Personal history of nicotine dependence; Z85.118 Personal history of other malignant neoplasm of bronchus and lung
CPT/HCPCS: 36415; 36569; 36600; 71045; 76882; 76937; 77001; 80048; 80053; 82272; 82803; 83735; 85014; 85018; 85025; 85610; 86078; 86850; 86900; 86901; 86922; 93306; 94640; 94660; A9270-GY; J1642; J1940; J2060; J2270; J3475; J3480; P9040